=== PATIENT | male | born 1975 | race Caucasian/White ===

== ENCOUNTER 2025-05-15 11:14 | Emergency (ER) | payer BC, SELFPAY ==
[2025-05-15 11:24] VITALS: BP 122/65; PULSE 69; RESP 16; TEMP 36.6; O2SAT 96; BMI 35.8
--- NOTE | 2025-05-15 11:28 | DI.US.S_ITS ---
PROCEDURE: US ABDOMEN LIMITED INDICATIONS: RUQ pain, hx of gall bladder issues TECHNIQUE: Real-time scanning was performed of the abdominal and retroperitoneal organs, with image documentation. COMPARISON: None. FINDINGS: Liver: Liver is normal in size and homogeneous in echotexture. Gallbladder: No gallstones. No gallbladder wall thickening or pericholecystic fluid. No sonographic Richardson sign. Biliary ducts: Intrahepatic bile ducts are non-dilated. Extrahepatic bile duct caliber measures 5.0 mm. Normal is 6-7 mm or less in diameter, or 10 mm or less post-cholecystectomy. Pancreas: Visualized portions of the pancreas are sonographically normal. Miscellaneous: No free abdominal fluid. IMPRESSION: Unremarkable ultrasound examination of right upper quadrant abdomen. Dictated by: Peterson Dorado M.D. on 05/15/2025 at 12:31 Approved by: Peterson Dorado M.D. on 05/15/2025 at 12:32
--- NOTE | 2025-05-15 11:41 | ED.ABDPAIN ---
HPI - Abdominal Pain General Chief Complaint: Abdominal Pain Stated Complaint: Possible Gallbladder attack, 7 days Time Seen by Provider: 05/15/25 11:27 Source: patient Mode of arrival: Ambulatory History of Present Illness HPI narrative: This is a 50-year-old male presents to the emergency department due to 7 days of constant right flank pain that radiates to his right upper abdomen. He denies any hematuria. States that he has had this pain off and on for few years and was told that he had ?gallbladder issues and possible fistula? after being seen at a clinic in [place] but was not able to follow up with surgery. He states he has a low-fat diet but has not noticed any changes in pain due to foods. He reports some nausea as well. Denies any diarrhea or blood in the stool. Denies any fevers. Does report increased physical activity to nursing. Related Data Previous Rx's ?Medication ?Instructions ?Recorded cyclobenzaprine 10 mg tablet 10 mg PO TID PRN muscle spasm #30 05/15/25 tabs Allergies Allergy/AdvReac Type Severity Reaction Status Date / Time No Known Drug Allergies Allergy Verified 05/15/25 11:29 Review of Systems Review of Systems Narrative: GENERAL: Denies chills, fatigue, malaise, fever, sweats. HEENT: Denies sinus pain, ear pain, sore throat, difficulty swallowing, dizziness. RESPIRATORY: Denies dyspnea, cough, wheezing, hemoptysis, sputum. CARDIOVASCULAR: Denies chest pain, palpitations, orthopnea, edema, GASTROINTESTINAL: Denies nausea, vomiting, abdominal pain, diarrhea, constipation, melena. : Denies dysuria, frequency, incontinence, hematuria, urinary retention. MUSCULOSKELETAL: Reports right flank pain SKIN: Denies rash, skin lesions, or other NEUROLOGIC: Denies weakness, headache, numbness, change in speech, confusion, seizures, incoordination. PSYCHIATRIC: No concerning psychosocial issues. 12 point review of systems is negative except for those stated above Exam Narrative Exam Narrative: GENERAL: Well-developed patient, in mild distress. HEAD: Atraumatic. Normocephalic. EYES: Pupils equal round and reactive. Extraocular motions intact. No scleral icterus. No injection or drainage. ENT: Nose without bleeding, purulent drainage. Throat without erythema, tonsillar hypertrophy or exudate. Airway patent. NECK: Trachea midline. Non tender EXTREMITIES: No edema or joint tenderness. NEURO: AOx3. SKIN: No rash or erythema of visible areas Back: Right-sided CVA tenderness to palpation, pain worsens with range of motion Abdomen: No abdominal tenderness to palpation Initial Vital Signs Initial Vital Signs: Vital Signs Temperature 97.8 F 05/15/25 11:24 Pulse Rate 69 05/15/25 11:24 Respiratory Rate 16 05/15/25 11:24 Blood Pressure 122/65 05/15/25 11:24 Pulse Oximetry 96 05/15/25 11:24 Oxygen Delivery Method Room Air 05/15/25 11:24 Course Orders Ordered: ED Orders 05/15/25 11:28 US abdomen limited Stat EKG-12 Lead Stat 05/15/25 11:36 UA Complete [Urinalysis and Microscopic] Stat 05/15/25 11:38 Complete Blood Count AUTO DIFF Stat Comprehensive Metabolic Panel Stat Lipase Stat 05/15/25 13:45 CT abdomen pelvis wo con Stat Discontinued Medications Ketorolac Tromethamine (Ketorolac 30 Mg/Ml Vial) 15 mg IM NOW ONE Stop: 05/15/25 12:57 Last Admin: 05/15/25 13:08 Dose: Not Given Documented By: MIRA Ketorolac Tromethamine (Ketorolac 30 Mg/Ml Vial) 15 mg IV NOW ONE Stop: 05/15/25 13:09 Last Admin: 05/15/25 13:11 Dose: 15 mg Documented By: MIRA Vital Signs Vital signs: Vital Signs - 8 hr 05/15/25 11:24 05/15/25 12:33 Temperature 97.8 F Pulse Rate 69 69 Respiratory Rate 16 16 Blood Pressure 122/65 120/68 Pulse Oximetry 96 97 Oxygen Delivery Method Room Air Room Air MDM - Abdominal Pain Lab Data 05/15/25 11:38 05/15/25 11:38 Labs: Lab Results 05/15/25 05/15/25 Range/Units 11:36 11:38 WBC 7.0 (4.5-11.0) X10^3/uL RBC 4.88 (4.5-5.9) X10^6/uL Hgb 15.1 (13.5-17.5) g/dL Hct 44.2 (41-53) % MCV 90.6 (80-100) fL MCH 31.0 (26-34) PG MCHC 34.2 (30-36) % RDW 13.1 (11.6-14.8) % Plt Count 225 (150-400) X10^3/uL Neut % (Auto) 67.0 (50-75) % Lymph % (Auto) 18.8 L (25-40) % [place] % (Auto) 10.7 (3-14) % Eos % (Auto) 2.9 (2-4) % Baso % (Auto) 0.6 (0-2) % Neut # (Auto) 4700 (9599-3275) /uL Lymph # (Auto) 1300 (0954-9206) /uL [place] # (Auto) 800 (0-900) /uL Eos # (Auto) 200 (0-450) /uL Baso # (Auto) 0 (0-100) /uL Sodium 139 (137-145) mmol/L Potassium 4.2 (3.4-5.1) mmol/L Chloride 105 (98-107) mmol/L Carbon Dioxide 25 (22-32) mmol/L BUN 21 H (9-20) mg/dL Creatinine 0.93 (0.66-1.25) mg/dL Estimated GFR > 60 (>60) mL/min BUN/Creatinine Ratio 22.6 H (6-22) Glucose 99 (70-99) mg/dL Calcium 9.1 (8.4-10.2) mg/dL Total Bilirubin 0.5 (0.2-1.3) mg/dL AST 28 (17-59) IU/L ALT 28 (<50) IU/L Alkaline Phosphatase 68 (38-126) U/L Total Protein 8.5 H (6.3-8.2) g/dL Albumin 4.9 (3.5-5.0) g/dL Globulin 3.6 (1.7-4.1) g/dL Albumin/Globulin Ratio 1.4 (1.0-2.8) Lipase 149 (23-300) U/L Urine Color Yellow Urine Appearance Clear Urine pH 5.5 (4.5-8.0) Ur Specific [place] <=1.005 (1.000-1.035) Urine Protein Negative (Negative) Urine Glucose (UA) Negative (Negative) g/dL Urine Ketones Negative (NEGATIVE) Urine Occult Blood Negative (Negative) Urine Nitrate Negative (Negative) Urine Bilirubin Negative (NEGATIVE) Urine Urobilinogen 0.2 (0.2) E.U./dL Ur Leukocyte Esterase Negative (NEGATIVE) Urine RBC None seen (0-5/HPF) Urine WBC None seen (0-5/HPF) Ur Squamous Epith Cells None seen (0-5/HPF) Urine Bacteria None seen (None) Ur Culture Indicated? Cult not indicated Vol Urine Centrifuged 10ml (spun) Imaging Data CT scan - abdomen/pelvis: Radiologist's Impression: [address] [address] [address] Scan Report Signed Patient: Aftab Gómez MR#: [id number] : 1975 Acct:[id number] Age/Sex: 50 / M Date of Service: 05/15/25 Loc: ED Accession Number: [id number] Procedure: CT abdomen pelvis wo con Ordering Provider: Juan Almazan PA-C PROCEDURE: CT ABDOMEN PELVIS WO CON INDICATIONS: R flank pain TECHNIQUE: Axial sections were acquired from the lung bases to the pubic symphysis. Coronal and sagittal reformats were performed. For radiation dose reduction, the following was used: automated exposure control, adjustment of mA and/or kV according to patient size. COMPARISON: None. FINDINGS: Image quality: Diagnostic. Lower Chest: No significant findings. URINARY: Right Kidney: No stones or hydronephrosis. Right Ureter: No hydroureter. Left Kidney: No stones or hydronephrosis. Left Ureter: No hydroureter. Bladder: Normal wall thickness. No stones. ABDOMEN: Liver: No contour-deforming solid mass. Gallbladder: Not visualized. Biliary ducts: No biliary dilation. Pancreas: No ductal dilation. Spleen: Size is within normal limits. Adrenal Glands: No adrenal nodules. Stomach and Bowel: Normal colonic caliber, without significant wall thickening. Large stool burden. Normal appendix. Peritoneum: No abnormal intraperitoneal fluid. No free air. Ventral Wall: No hernia. Abdominal Nodes: No enlarged retroperitoneal or mesenteric lymph nodes. Vessels: Aorta and inferior vena cava are normal in size. Atherosclerotic calcifications. PELVIS: Pelvic Organs: Unremarkable. Pelvic Nodes: Unremarkable. Miscellaneous: No inguinal hernias are seen. 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 Mild degenerative changes. IMPRESSION: 1. No obstructing stones or hydronephrosis. No acute findings within the abdomen or pelvis. 2. Large stool burden, correlate for constipation. Dictated by: Hima Richards M.D. on 05/15/2025 at 14:14 Approved by: Hima Richards M.D. on 05/15/2025 at 14:25 US - abdomen: Radiologist's Impression: [address] [address] Ultrasound Report Signed Patient: Aftab Gómez MR#: [id number] : 1975 Acct:[id number] Age/Sex: 50 / M Date of Service: 05/15/25 Loc: ED Accession Number: [id number] Procedure: US abdomen limited Ordering Provider: Juan Almazan PA-C PROCEDURE: US ABDOMEN LIMITED INDICATIONS: RUQ pain, hx of gall bladder issues TECHNIQUE: Real-time scanning was performed of the abdominal and retroperitoneal organs, with image documentation. COMPARISON: None. FINDINGS: Liver: Liver is normal in size and homogeneous in echotexture. Gallbladder: No gallstones. No gallbladder wall thickening or pericholecystic fluid. No sonographic Richardson sign. Biliary ducts: Intrahepatic bile ducts are non-dilated. Extrahepatic bile duct caliber measures 5.0 mm. Normal is 6-7 mm or less in diameter, or 10 mm or less post-cholecystectomy. Pancreas: Visualized portions of the pancreas are sonographically normal. Miscellaneous: No free abdominal fluid. IMPRESSION: Unremarkable ultrasound examination of right upper quadrant abdomen. Dictated by: Peterson Dorado M.D. on 05/15/2025 at 12:31 Approved by: Peterson Dorado M.D. on 05/15/2025 at 12:32 [facility] Narrative Medical decision making narrative: ED course: This is a 50-year-old male presents to the emergency department due suspected lumbar strain. He does report increased physical activity with nursing and there was pain to palpation to the right paralumbar area as well as increased pain with range of motion. Patient was concerned as he was told that he had gallbladder issues and a possible fistula. Ultrasound of the right upper quadrant was ordered which showed no abnormalities. Patient was insistent on further investigation. CT abdomen and pelvis ordered which showed no abnormalities. Suspect muscular in nature which I described to the patient although he expressed some displeasure as he ?wants some answers?. Pain did improve with Toradol. We will treat for a suspected muscle strain with muscle relaxants and recommendations for ibuprofen and Tylenol. Low concern for any emergent processes. Lab work was reassuring and vital signs all within normal limits. CC: Right back pain Complicating co-morbidities: None Data collected from: Previous notes Medical records reviewed: Patient has not been to this emergency department the past. Differential considered, but not limited to: Cholecystitis, kidney stone, muscle strain Exam documented above, pertinent findings include: Right-sided CVA tenderness palpation Lab Test results independently reviewed as above. Pertinent findings: No abnormalities. Imaging studies independently reviewed: Right upper quadrant ultrasound and CT abdomen and pelvis unremarkable Scores Used: None MIPS Elements: None Consultations: None Treatments: IV Toradol Re-evaluations: Pain has improved after IV Toradol Discussion: Discussed plan with the patient was comfortable with the plan Diagnosis: Lumbosacral strain Disposition: see below, along with detailed discharge instructions that have been reviewed with patient as well as indications for ED re-evaluation and additional outpatient follow up Discharge Plan Departure Patient Disposition: Home Clinical Impression: Muscle strain Activity Restrictions/Additional Instructions: Thank you for coming to the [facility] Emergency Department today. Your lab work today was very reassuring. There was no evidence of infection, bleeding, electrolyte abnormalities, kidney injury, or any other concerning findings. The ultrasound of your gallbladder showed no abnormalities as well. The CT abdomen and pelvis showed no evidence of kidney stone or other emergent abnormalities. I suspect this is muscular in nature. You may take ibuprofen and Tylenol as needed for the pain as well as the muscle relaxants that a prescribed. Please be careful taking the muscle relaxants as they may make you feel a bit ?woozy? so please do not take before driving or operating any kind of machinery. I said the medication to [facility] in [place]. Please return to the emergency department if you develop any numbness between his legs, urinary or bowel incontinence, fevers, or any other concerning signs or symptoms. I hope you feel better soon. Please follow up with your primary care provider within a week if your symptoms continue. If you do not have a primary care provider please contact the [facility] Resource line at [phone]. They will ask some questions about your medical history and help you get set up with a provider in the community. Prescriptions: New cyclobenzaprine 10 mg tablet 10 mg PO TID PRN (Reason: muscle spasm) Qty: 30 0RF Referrals: Ella Davison MD [Primary Care Provider, Family Practice] Stand Alone Forms: Patient Portal/API
[2025-05-15 11:47] LABS: Add Manual Diff / Slide Review NO; Hematocrit 44.2 % (41-53); Hemoglobin 15.1 g/dL (13.5-17.5); Lymphocytes Absolute Auto 1300 /uL (1100-4500); Mean Corpuscular HGB Conc 34.2 % (30-36); Mean Corpuscular Hemoglobin 31.0 PG (26-34); Mean Corpuscular Volume 90.6 fL (80-100); Platelet Count 225 X10^3/uL (150-400)
[2025-05-15 11:52] LABS: Appearance Urine UA CLEAR; Bilirubin Urine UA NEGATIVE (NEGATIVE); Color Urine UA YELLOW; Glucose Urine UA NEGATIVE (Negative); Ketones Urine UA NEGATIVE (NEGATIVE); Leukocyte Esterase Urine UA NEGATIVE (NEGATIVE); Nitrite Urine UA NEGATIVE (Negative); Occult Blood Urine UA NEGATIVE (Negative); Protein Urine UA NEGATIVE (Negative); Specific Gravity Urine UA <=1.005 (1.000-1.035); Urobilinogen Urine UA 0.2 E.U./dL (0.2); pH Urine UA 5.5 (4.5-8.0)
[2025-05-15 11:54] LABS: Culture Indicated Urine Cult Not Indicated
[2025-05-15 12:02] LABS: Alanine Aminotransferase 28 IU/L (<50); Albumin 4.9 g/dL (3.5-5.0); Albumin Globulin Ratio 1.4 (1.0-2.8); Alkaline Phosphatase 68 U/L (38-126); Blood Urea Nitrogen 21 mg/dL (9-20); Calcium 9.1 mg/dL (8.4-10.2); Carbon Dioxide 25 mmol/L (22-32); Chloride 105 mmol/L (98-107); Estimated Glomerular Filt Rate > 60 mL/min (>60); Globulin 3.6 g/dL (1.7-4.1); Glucose 99 mg/dL (70-99); HEMOLYSIS < 15 (0-50); Lipase 149 U/L (23-300); Potassium 4.2 mmol/L (3.4-5.1); Sodium 139 mmol/L (137-145); Total Protein 8.5 g/dL (6.3-8.2)
--- NOTE | 2025-05-15 12:27 | EKG_ITS ---
[facility] [address], [place] [address] Test Date: 2025-05-15 Pat Name: Aftab Gómez Department: [facility] Room: Gender: Male Manufacturing Tech: [id number] : 1975 Requested By: Order Number: [id number] Reading MD: Davy Mendiola MD Measurements Intervals Power Rate: 65 P: 37 ID: [id number] QRS: 10 QRSD: 80 T: 28 QT: 394 QTc: 409 Interpretive Statements Normal sinus rhythm Electronically Signed On 05-16-2025 7:36:39 PST by Davy Mendiola MD
[2025-05-15 12:33] VITALS: BP 120/68; PULSE 69; RESP 16; O2SAT 97
[2025-05-15] MEDS: KETOROLAC 30 MG/ML VIAL 15 MG IV (13:11)
--- NOTE | 2025-05-15 13:45 | DI.CT.S_ITS ---
PROCEDURE: CT ABDOMEN PELVIS WO CON INDICATIONS: R flank pain TECHNIQUE: Axial sections were acquired from the lung bases to the pubic symphysis. Coronal and sagittal reformats were performed. For radiation dose reduction, the following was used: automated exposure control, adjustment of mA and/or kV according to patient size. COMPARISON: None. FINDINGS: Image quality: Diagnostic. Lower Chest: No significant findings. URINARY: Right Kidney: No stones or hydronephrosis. Right Ureter: No hydroureter. Left Kidney: No stones or hydronephrosis. Left Ureter: No hydroureter. Bladder: Normal wall thickness. No stones. ABDOMEN: Liver: No contour-deforming solid mass. Gallbladder: Not visualized. Biliary ducts: No biliary dilation. Pancreas: No ductal dilation. Spleen: Size is within normal limits. Adrenal Glands: No adrenal nodules. Stomach and Bowel: Normal colonic caliber, without significant wall thickening. Large stool burden. Normal appendix. Peritoneum: No abnormal intraperitoneal fluid. No free air. Ventral Wall: No hernia. Abdominal Nodes: No enlarged retroperitoneal or mesenteric lymph nodes. Vessels: Aorta and inferior vena cava are normal in size. Atherosclerotic calcifications. PELVIS: Pelvic Organs: Unremarkable. Pelvic Nodes: Unremarkable. Miscellaneous: No inguinal hernias are seen. 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 Mild degenerative changes. IMPRESSION: 1. No obstructing stones or hydronephrosis. No acute findings within the abdomen or pelvis. 2. Large stool burden, correlate for constipation. Dictated by: Hima Richards M.D. on 05/15/2025 at 14:14 Approved by: Hima Richards M.D. on 05/15/2025 at 14:25
[2025-05-15 15:16] VITALS: BP 120/58; PULSE 61; RESP 18; TEMP 36.7; O2SAT 95
== END 2025-05-15 15:05 | disposition home or self-care (01) ==
PROVIDERS: Emergency Provider Physician Assistant Medical; PCP Family Medicine
DX: S39.011A Strain of muscle, fascia and tendon of abdomen, initial encounter (principal)
CPT/HCPCS: 74176; 76705; 80053; 81001; 83690; 85025; 93005; 93010; 96374; 99283; 99284; J1885